=== PATIENT | female | born 1990 | race Caucasian/White ===

== ENCOUNTER 2018-12-16 18:00 | Emergency (ER) | payer BC, OTHER ==
[~2018-12-16] VITALS: Ht 162.6 cm; Wt 56.0 kg
[~2018-12-16 18:00] MED LIST: FAMO-1 PO; ONDA4TAB59 PO
[2018-12-16 18:04] VITALS: BP 113/68
== END 2018-12-16 18:57 | disposition home or self-care (01) ==
LOC: ER 18:02
DX: Z77.21 Contact with and (suspected) exposure to potentially hazardous body fluids (principal); O26.899 Other specified pregnancy related conditions, unspecified trimester; E03.9 Hypothyroidism, unspecified; Z88.8 Allergy status to other drugs, medicaments and biological substances; Z91.013 Allergy to seafood; Z3A.00 Weeks of gestation of pregnancy not specified
CPT/HCPCS: 99281